=== PATIENT | female | born 1970 | race Caucasian/White ===

== ENCOUNTER 2019-02-21 05:01 | Inpatient (IN) | payer OTHER, SELFPAY ==
[~2019-02-21] VITALS: Ht 154.9 cm; Wt 130.2 kg
--- NOTE | 2019-02-21 05:11 | NUR ---
BROUGHT IN BY JALIL FROM HOME. C/O DIFFICULTY BREATHING SINCE 4 AM. DENIES HX OF LUNG PROBLEMS. + HEADACHE. DENIES CP. WHEEZING NOTED. 1 ALBUTEROL AND 1 DUONEB TX GIVEN CUSTOMER ACQUISITION MANAGER.
--- NOTE | 2019-02-21 05:12 | NUR ---
assessment made. MD at bedside.
[2019-02-21] MEDS ORDERED: AMOX1TAB64 PO (05:14)
--- NOTE | 2019-02-21 05:24 | NUR ---
X ray at bedside.
[2019-02-21] MEDS ORDERED: ALBUTEROL/IPRATROPIUM 2.5MG/0.5MG, 3 ML NEB ONE ×2 (05:30→07:00)
[2019-02-21] MEDS ORDERED: ALBUTEROL/IPRATROPIUM 2.5MG/0.5MG, 3 ML ONE ×2 (05:31→07:03)
--- NOTE | 2019-02-21 05:35 | NUR ---
RT at bedside for breathing treatment.
[2019-02-21 06:04] LABS: CHLORIDE 111 mmol/L (98-107)
[2019-02-21 06:17] LABS: ALBUMIN 3.4 g/dL (3.4-5.0); ANION GAP 9 mmol/L (5-15); CALCIUM 8.6 mg/dL (8.5-10.1)
[2019-02-21 06:20] LABS: ALANINE AMINOTRANSFERASE 17 U/L (12-78); ALKALINE PHOSPHATASE 111 U/L (45-117); BILIRUBIN,TOTAL 0.5 mg/dL (0.2-1.0); CREATININE 0.66 mg/dL (0.55-1.02); TOTAL PROTEIN 6.9 g/dL (6.4-8.2); TROPONIN I < 0.015 ng/mL (0.000-0.045)
[2019-02-21 06:24] LABS: BASOPHILS # (AUTO) 0.02 x10^3/uL (0-0.1); BASOPHILS % (AUTO) 0 % (0-1); EOSINOPHILS # (AUTO) 0.16 x10^3/uL (0-0.4); EOSINOPHILS % (AUTO) 2 % (1-7); LYMPHOCYTES # (AUTO) 1.58 x10^3/uL (1-3.4); LYMPHOCYTES % (AUTO) 18 % (22-44); MD NO; MEAN CORPUSCULAR HEMOGLOBIN 29.9 pg (27.0-34.8); MEAN CORPUSCULAR HGB CONC 32.4 g/dL (32.4-35.8); MEAN CORPUSCULAR VOLUME 92.4 fL (80-100); MEAN PLATELET VOLUME 9.9 fL (7.4-10.4); MONOCYTES # (AUTO) 0.31 x10^3/uL (0.2-0.8); MONOCYTES % (AUTO) 4 % (2-9); NEUTROPHILS % (AUTO) 77 % (42-75); PLATELET COUNT 211 x10^3/uL (130-400); RED BLOOD COUNT 4.71 x10^6/uL (3.82-5.3)
--- NOTE | 2019-02-21 06:52 | NUR ---
REPORT TAKEN FROM GUMARO VELA. PT RESTING ON BETH. NADN. MASS. CALL LIGHT IN REACH.
--- NOTE | 2019-02-21 07:03 | NUR ---
RESPIRATORY PAGED FOR ORDERED BREATHING TREATMENT. RT AT BEDSIDE AT THIS TIME TO ADMINISTER BREATHING TREATMENT.
--- NOTE | 2019-02-21 07:28 | NUR ---
MADE AWARE OF CXR RESULTS. STATED PT WILL LIKELY BE TREATED FOR PNA AND ASKED THAT BC NOT BE DRAWN AND THAT RA SATURATIONS BE CHECKED AT THIS TIME.
--- NOTE | 2019-02-21 07:29 | NUR ---
MD AT BEDSIDE TO UPDATE PT ON POC. PERFORMING RA TEST WHILE PT RESTS ON GUCOREY.
[2019-02-21] MEDS ORDERED: AZITHROMYCIN 500 MG TABLET PO ONE (07:30)
--- NOTE | 2019-02-21 07:31 | NUR ---
STATED BC AND LACTIC ACID WILL BE DRAWN AND PT WILL BE ADMITTED AN INPT.
--- NOTE | 2019-02-21 07:57 | NUR ---
LAB AT BEDSIDE DRAWING BC AT THIS TIME.
[2019-02-21] MEDS ORDERED: CEFTRIAXONE PMX 1GM/50ML 50 ML IV ONE (08:30)
[2019-02-21] MEDS ORDERED: AZITHROMYCIN 500 MG in SODIUM CHLORIDE 0.9% 250 ML IV ONE (08:30)
--- NOTE | 2019-02-21 08:34 | NUR ---
MEDICATED PER EMAR. PT DENIES NEEDS AT THIS TIME. CALL LIGHT IN REACH. [place].
[2019-02-21] MEDS ORDERED: CEFTRIAXONE PMX 1GM/50ML 50 ML ONE (09:25)
[2019-02-21] MEDS ORDERED: SODIUM CHLORIDE 0.9% 1,000 ML IV SCH (09:31)
--- NOTE | 2019-02-21 09:35 | NUR ---
REPORT GIVEN TO GUMARO GALO. MEDICATED PER EMAR. PT TO GO TO [phone].
[2019-02-21] MEDS ORDERED: ONDANSETRON ODT 4 MG PO PRN (10:00)
[2019-02-21 10:03] LABS: TROPONIN I < 0.015 ng/mL (0.000-0.045)
[2019-02-21 10:20] VITALS: BP 143/87
[2019-02-21] MEDS: NICOTINE 14MG/24 HR PATCH.TD24 TD SCH (10:30)
[2019-02-21] MEDS ORDERED: POTASSIUM CHLORIDE 20 MEQ TAB.ER.PRT PO ONE (10:30)
[2019-02-21] MEDS: ENOXAPARIN 40 MG/0.4 ML SQ SCH (10:30)
[2019-02-21 10:35] LABS: HEMOGLOBIN A1C 5.5 % (4.2-6.3)
[2019-02-21] MEDS: DOXYCYCLINE 100 MG in DEXTROSE 5% 250 ML IV SCH ×2 (10:55→22:21)
[2019-02-21] MEDS: ACETAMINOPHEN 325 MG TABLET PO PRN ×2 (10:55→20:57)
[2019-02-21 14:45] VITALS: BP 145/93
[2019-02-21] MEDS: IBUPROFEN 200 MG TABLET PO PRN ×2 (15:07→22:21)
[2019-02-21 15:50] LABS: TROPONIN I < 0.015 ng/mL (0.000-0.045)
[2019-02-21 19:59] VITALS: BP 152/98
[2019-02-21] MEDS: ALBUTEROL SULFATE 2.5 MG/3 ML NPPB PRN (20:00)
[2019-02-21] MEDS: GUAIFENESIN/DM 200-20MG, 10ML UDC PO PRN (21:02)
[2019-02-22] MEDS: ALBUTEROL SULFATE 2.5 MG/3 ML NPPB PRN ×3 (01:50→20:52)
[2019-02-22 02:13] VITALS: BP 152/93
[2019-02-22 05:30] LABS: BASOPHILS # (AUTO) 0.02 x10^3/uL (0-0.1); BASOPHILS % (AUTO) 0 % (0-1); EOSINOPHILS # (AUTO) 0.15 x10^3/uL (0-0.4); EOSINOPHILS % (AUTO) 2 % (1-7); LYMPHOCYTES # (AUTO) 1.24 x10^3/uL (1-3.4); LYMPHOCYTES % (AUTO) 14 % (22-44); MD NO; MEAN CORPUSCULAR HEMOGLOBIN 30.9 pg (27.0-34.8); MEAN CORPUSCULAR HGB CONC 33.5 g/dL (32.4-35.8); MEAN CORPUSCULAR VOLUME 92.3 fL (80-100); MEAN PLATELET VOLUME 9.6 fL (7.4-10.4); MONOCYTES % (AUTO) 6 % (2-9); NEUTROPHILS # (AUTO) 6.85 x10^3/uL (1.8-6.8); NEUTROPHILS % (AUTO) 78 % (42-75); PLATELET COUNT 221 x10^3/uL (130-400)
[2019-02-22 05:38] LABS: CHLORIDE 111 mmol/L (98-107)
[2019-02-22 05:46] LABS: ALANINE AMINOTRANSFERASE 15 U/L (12-78); ALBUMIN 3.1 g/dL (3.4-5.0); ALKALINE PHOSPHATASE 95 U/L (45-117); ANION GAP 5 mmol/L (5-15); BILIRUBIN,TOTAL 0.8 mg/dL (0.2-1.0); CALCIUM 8.8 mg/dL (8.5-10.1); CHOL/HDL RATIO 3.6; CHOLESTEROL, TOTAL 133 mg/dL (140-239); CREATININE 0.53 mg/dL (0.55-1.02); HDL CHOL % 28 % (28-40); HDL CHOLESTEROL (DIRECT) 37 mg/dL (40-60); LDL CHOLESTEROL,CALCULATED 72 mg/dL (54-169); LDL/HDL RATIO 1.9 (0.5-3.0); TOTAL PROTEIN 6.3 g/dL (6.4-8.2); TRIGLYCERIDES 122 mg/dL (50-200); VLDL CHOLESTEROL 24 mg/dL (0-25)
[2019-02-22] MEDS: ACETAMINOPHEN 325 MG TABLET PO PRN ×2 (07:08→16:56)
[2019-02-22 07:24] VITALS: BP 143/83
[2019-02-22] MEDS: GUAIFENESIN/DM 200-20MG, 10ML UDC PO PRN (07:35)
[2019-02-22] MEDS: POTASSIUM CHLORIDE 20 MEQ TAB.ER.PRT PO SCH ×2 (07:35→16:56)
[2019-02-22] MEDS: CHLORTHALIDONE 25 MG TABLET PO SCH (07:35)
[2019-02-22] MEDS: IBUPROFEN 200 MG TABLET PO PRN ×2 (08:39→20:37)
[2019-02-22] MEDS: ENOXAPARIN 40 MG/0.4 ML SQ SCH (10:03)
[2019-02-22] MEDS: CEFTRIAXONE PMX 1GM/50ML 50 ML IV SCH (10:03)
[2019-02-22] MEDS: NICOTINE 14MG/24 HR PATCH.TD24 TD SCH (10:11)
[2019-02-22] MEDS: DOXYCYCLINE 100 MG in DEXTROSE 5% 250 ML IV SCH ×2 (11:58→23:24)
[2019-02-22 13:05] VITALS: BP 130/84
[2019-02-22 20:39] VITALS: BP 161/110
[2019-02-22] MEDS: ENALAPRILAT 1.25 MG/ML, 2ML IVPush PRN (21:07)
[2019-02-22 21:43] VITALS: BP 158/101
[2019-02-23 01:52] VITALS: BP 123/79
[2019-02-23 05:47] LABS: ANION GAP 6 mmol/L (5-15); BASOPHILS # (AUTO) 0.01 x10^3/uL (0-0.1); BASOPHILS % (AUTO) 0 % (0-1); CHLORIDE 108 mmol/L (98-107); CREATININE 0.64 mg/dL (0.55-1.02); EOSINOPHILS % (AUTO) 5 % (1-7); LYMPHOCYTES # (AUTO) 1.45 x10^3/uL (1-3.4); LYMPHOCYTES % (AUTO) 20 % (22-44); MD NO; MEAN CORPUSCULAR HEMOGLOBIN 29.8 pg (27.0-34.8); MEAN CORPUSCULAR HGB CONC 32.5 g/dL (32.4-35.8); MEAN CORPUSCULAR VOLUME 91.8 fL (80-100); MEAN PLATELET VOLUME 9.5 fL (7.4-10.4); MONOCYTES % (AUTO) 7 % (2-9); NEUTROPHILS # (AUTO) 4.96 x10^3/uL (1.8-6.8); NEUTROPHILS % (AUTO) 68 % (42-75); PLATELET COUNT 253 x10^3/uL (130-400); RED BLOOD COUNT 4.47 x10^6/uL (3.82-5.3); RED CELL DISTRIBUTION WIDTH 15.6 % (9.6-15.2)
[2019-02-23] MEDS: ACETAMINOPHEN 325 MG TABLET PO PRN ×3 (06:32→22:02)
[2019-02-23 08:30] VITALS: BP 135/92
[2019-02-23] MEDS: NICOTINE 14MG/24 HR PATCH.TD24 TD SCH (09:12)
[2019-02-23] MEDS: CHLORTHALIDONE 25 MG TABLET PO SCH (09:12)
[2019-02-23] MEDS: CEFTRIAXONE PMX 1GM/50ML 50 ML IV SCH (09:13)
[2019-02-23] MEDS: ENOXAPARIN 40 MG/0.4 ML SQ SCH (09:13)
[2019-02-23] MEDS: AMPICILLIN/SULBACTAM 3 GM in SODIUM CHLORIDE 0.9% 100 ML IV SCH ×2 (11:04→16:58)
[2019-02-23 14:44] VITALS: BP 157/93
[2019-02-23 15:45] VITALS: BP 180/115
[2019-02-23 16:06] VITALS: BP 162/103
[2019-02-23] MEDS: ENALAPRILAT 1.25 MG/ML, 2ML IVPush PRN (16:06)
[2019-02-23 21:25] VITALS: BP 139/86
[2019-02-23] MEDS: DOXYCYCLINE 100MG TABLET PO SCH (21:57)
[2019-02-23] MEDS: GUAIFENESIN/DM 200-20MG, 10ML UDC PO PRN (22:01)
[2019-02-23] MEDS: IBUPROFEN 200 MG TABLET PO PRN (22:02)
[2019-02-24 02:11] VITALS: BP 127/77
[2019-02-24 06:18] LABS: BASOPHILS # (AUTO) 0.02 x10^3/uL (0-0.1); BASOPHILS % (AUTO) 0 % (0-1); EOSINOPHILS # (AUTO) 0.46 x10^3/uL (0-0.4); EOSINOPHILS % (AUTO) 6 % (1-7); LYMPHOCYTES # (AUTO) 1.93 x10^3/uL (1-3.4); LYMPHOCYTES % (AUTO) 23 % (22-44); MD NO; MEAN CORPUSCULAR HEMOGLOBIN 30.2 pg (27.0-34.8); MEAN CORPUSCULAR HGB CONC 32.7 g/dL (32.4-35.8); MEAN CORPUSCULAR VOLUME 92.1 fL (80-100); MEAN PLATELET VOLUME 9.1 fL (7.4-10.4); MONOCYTES # (AUTO) 0.51 x10^3/uL (0.2-0.8); MONOCYTES % (AUTO) 6 % (2-9); NEUTROPHILS # (AUTO) 5.31 x10^3/uL (1.8-6.8); NEUTROPHILS % (AUTO) 65 % (42-75); PLATELET COUNT 275 x10^3/uL (130-400); RED BLOOD COUNT 4.88 x10^6/uL (3.82-5.3); RED CELL DISTRIBUTION WIDTH 14.9 % (9.6-15.2)
[2019-02-24 06:30] LABS: ANION GAP 8 mmol/L (5-15); CALCIUM 9.5 mg/dL (8.5-10.1); CHLORIDE 104 mmol/L (98-107); CREATININE 0.59 mg/dL (0.55-1.02)
[2019-02-24 08:07] VITALS: BP 164/105
[2019-02-24] MEDS: CHLORTHALIDONE 25 MG TABLET PO SCH (08:16)
[2019-02-24] MEDS: DOXYCYCLINE 100MG TABLET PO SCH ×2 (08:16→20:36)
[2019-02-24] MEDS: ENOXAPARIN 40 MG/0.4 ML SQ SCH (10:09)
[2019-02-24] MEDS: NICOTINE 14MG/24 HR PATCH.TD24 TD SCH (10:09)
[2019-02-24] MEDS: ACETAMINOPHEN 325 MG TABLET PO PRN (10:22)
[2019-02-24] MEDS: CEFTRIAXONE PMX 2GM/50ML 50 ML IV SCH (10:22)
[2019-02-24] MEDS: GUAIFENESIN/DM 200-20MG, 10ML UDC PO PRN ×2 (10:22→20:36)
[2019-02-24] MEDS ORDERED: OMNIPAQUE 350 MG/ML, 150 ML BOTTLE ONE (12:10)
[2019-02-24 19:49] VITALS: BP 137/86
[2019-02-25 00:36] VITALS: BP 115/80
[2019-02-25] MEDS: ACETAMINOPHEN 325 MG TABLET PO PRN ×2 (03:48→10:38)
[2019-02-25 04:34] LABS: BASOPHILS # (AUTO) 0.02 x10^3/uL (0-0.1); BASOPHILS % (AUTO) 0 % (0-1); EOSINOPHILS # (AUTO) 0.35 x10^3/uL (0-0.4); EOSINOPHILS % (AUTO) 4 % (1-7); LYMPHOCYTES # (AUTO) 1.77 x10^3/uL (1-3.4); LYMPHOCYTES % (AUTO) 19 % (22-44); MD NO; MEAN CORPUSCULAR HEMOGLOBIN 30.6 pg (27.0-34.8); MEAN CORPUSCULAR HGB CONC 32.9 g/dL (32.4-35.8); MEAN CORPUSCULAR VOLUME 92.9 fL (80-100); MEAN PLATELET VOLUME 9.5 fL (7.4-10.4); MONOCYTES # (AUTO) 0.52 x10^3/uL (0.2-0.8); MONOCYTES % (AUTO) 6 % (2-9); NEUTROPHILS # (AUTO) 6.79 x10^3/uL (1.8-6.8); NEUTROPHILS % (AUTO) 72 % (42-75); PLATELET COUNT 263 x10^3/uL (130-400); RED BLOOD COUNT 4.82 x10^6/uL (3.82-5.3); RED CELL DISTRIBUTION WIDTH 15.1 % (9.6-15.2)
[2019-02-25 04:41] LABS: CHLORIDE 106 mmol/L (98-107)
[2019-02-25 04:47] LABS: ANION GAP 7 mmol/L (5-15); CALCIUM 9.4 mg/dL (8.5-10.1); CREATININE 0.67 mg/dL (0.55-1.02)
[2019-02-25 07:23] VITALS: BP 116/80
[2019-02-25] MEDS: CEFTRIAXONE PMX 2GM/50ML 50 ML IV SCH (08:22)
[2019-02-25] MEDS: CHLORTHALIDONE 25 MG TABLET PO SCH (08:22)
[2019-02-25] MEDS: DOXYCYCLINE 100MG TABLET PO SCH (08:22)
[2019-02-25] MEDS: ENOXAPARIN 40 MG/0.4 ML SQ SCH (10:00)
[2019-02-25] MEDS: NICOTINE 14MG/24 HR PATCH.TD24 TD SCH (10:00)
[2019-02-25] MEDS ORDERED: DOXY100T PO (11:48)
[2019-02-25] MEDS ORDERED: CHLO25TA PO (11:48)
[2019-02-25] MEDS ORDERED: AMOX1TAB64 PO (11:48)
== END 2019-02-25 13:45 | disposition home or self-care (01) | DRG 193 ==
LOC: ED 05:54 → 4NOR 08:24 → ED 08:24 → 4NOR 09:50 → 4WST 02-24 13:36 → DCLOUNGE 02-25 13:32
PROVIDERS: ADMIT Internal Medicine; ATTEND Internal Medicine
DX: J15.9 Unspecified bacterial pneumonia (principal); J96.01 Acute respiratory failure with hypoxia; Z68.43 Body mass index [BMI] 50.0-59.9, adult; E66.9 Obesity, unspecified; E87.6 Hypokalemia; F17.210 Nicotine dependence, cigarettes, uncomplicated; Z82.49 Family history of ischemic heart disease and other diseases of the circulatory system
CPT/HCPCS: 36415; 84145; 99285; J7613; J7620; 71045; 71275; 80048; 80053; 80061; 83036; 83605; 83880; 84443; 84484; 85025; 85379; 87040; 87070; 87205; 93005; 93306; 94640; 96365; G0378; J0295; J0456; J0696; J1650; J7060; Q9967; J7030; J7050; J7512

== ENCOUNTER 2021-03-14 09:07 | Day surgery (SDC) | payer MEDICAID ==
[~2021-03-14] VITALS: Ht 154.9 cm; Wt 115.8 kg
[~2021-03-14 09:07] MED LIST: AMOX1TAB64 PO; CHLO25TA PO; DOXY100T PO
[2021-03-14] MEDS ORDERED: LISI-170 PO (09:57)
[2021-03-14] MEDS ORDERED: CHLO25TA PO (09:57)
[2021-03-14] MEDS ORDERED: BUPIVACAINE/PF 0.5% ONE (09:59)
[2021-03-14] MEDS ORDERED: EPINEPHRINE 1 MG/ML, 1ML ONE (09:59)
[2021-03-14] MEDS ORDERED: CHLORHEXIDINE 15 ML UDC ONE (10:00)
[2021-03-14] MEDS ORDERED: CHLORHEXIDINE 15 ML UDC PO ONE (10:00)
[2021-03-14] MEDS ORDERED: LACTATED RINGERS 1,000 ML IV SCH (10:00)
[2021-03-14] MEDS ORDERED: MIDAZOLAM 1 MG/ML, 2ML ONE (10:02)
[2021-03-14] MEDS ORDERED: FENTANYL PF 250 MCG/5ML ONE (10:02)
[2021-03-14 10:05] LABS: HCG UR SG 1.014 (1.003-1.030)
[2021-03-14] MEDS ORDERED: DEXAMETHASONE 4 MG/ML, 1ML ONE (10:05)
[2021-03-14] MEDS ORDERED: ONDANSETRON 2MG/ML, 2ML ONE (10:05)
[2021-03-14] MEDS ORDERED: GLYCOPYRROLATE 0.2MG/1ML, 5ML ONE (10:05)
[2021-03-14] MEDS ORDERED: ROCURONIUM 10MG/ML,5ML ONE (10:05)
[2021-03-14] MEDS ORDERED: NEOSTIGMINE 1 MG/ML, 10ML ONE (10:05)
[2021-03-14] MEDS ORDERED: CEFAZOLIN 1,000 MG ONE (10:05)
[2021-03-14] MEDS ORDERED: PROPOFOL 10 MG/ML, 20ML ONE (10:05)
[2021-03-14 10:15] VITALS: BP 126/80
[2021-03-14] MEDS ORDERED: HALOPERIDOL 5 MG/ML IV PRN (10:30)
[2021-03-14] MEDS ORDERED: hydrALAzine 20 MG/ML, 1ML IV PRN (10:30)
[2021-03-14] MEDS ORDERED: ACETAMINOPHEN 325 MG TABLET PO PRN (10:30)
[2021-03-14] MEDS ORDERED: morphine SULFATE 10 MG/ML, 1ML IVPush PRN (10:30)
[2021-03-14] MEDS ORDERED: MEPERIDINE/PF 25MG/0.5ML IVPush PRN (10:30)
[2021-03-14] MEDS ORDERED: HYDROmorphone 1 MG/ML, 1ML INJ IVPush PRN (10:30)
[2021-03-14] MEDS ORDERED: FENTANYL PF 100 MCG/2ML IV PRN (10:30)
[2021-03-14] MEDS ORDERED: PROMETHAZINE 25 MG/ML, 1ML IVPush PRN (10:30)
[2021-03-14] MEDS ORDERED: LABETALOL 5MG/ML, 20ML IV PRN (10:30)
[2021-03-14] MEDS: OXYcodone 5 MG/5 ML ORAL.SOL UDC PO PRN ×2 (12:07→12:09)
[2021-03-14] MEDS ORDERED: OXYcodone 5 MG/5 ML ORAL.SOL UDC ONE (12:09)
== END 2021-03-14 13:05 | disposition home or self-care (01) ==
LOC: OUT 09:07
PROVIDERS: ATTEND Colon & Rectal Surgery
DX: K62.89 Other specified diseases of anus and rectum (principal); I10 Essential (primary) hypertension; F17.210 Nicotine dependence, cigarettes, uncomplicated; Z79.899 Other long term (current) drug therapy; Z82.49 Family history of ischemic heart disease and other diseases of the circulatory system
CPT/HCPCS: 36415; 46220; 80047; 81025; 88305; J0171; J0690; J1100; J2250; J2405; J2704; J2710; J3010; J7120